=== PATIENT | male | born 1960 | race Caucasian/White ===

== ENCOUNTER → 2016-12-14 | Outpatient (CLI) | payer OTHER | LOC: LAB 12:03 | PROVIDERS: ATTEND Internal Medicine Gastroenterology | DX: K64.0 First degree hemorrhoids (principal) | CPT/HCPCS: 82270 ==

== ENCOUNTER → 2017-03-07 | Outpatient (CLI) | payer OTHER ==
--- NOTE | 2017-03-08 11:11 | MRI ---
HISTORY: Chronic right shoulder pain Study: MRI right shoulder without contrast Comparison: None Technique: Multiplanar multisequence MRI of the right shoulder was obtained utilizing standard depar tmental protocol. Findings: Rotator cuff There is globular increased intrasubstance signal intensity and thickening of the distal supraspinatu s tendon on T1 and T2 weighted images. No full-thickness tear or retraction is seen. Findings suggest moderate to severe tendinosis. Bursa No bursal effusion or thickening is seen. Musculature There is no muscular tear, contusion, or atrophy. Acromioclavicular joint There are moderate degenerative changes of the acromioclavicular joint. A type 2 acromion configurati on is noted. There is no anterior or lateral acromial downsloping. LONG BICIPITAL TENDON The biceps tendon is normally situated within the bicipital groove. No complete or partial biceps ten don tear is present. GLENOHUMERAL JOINT Joint fluid There is no glenohumeral joint effusion. Cartilage and Bone No focal hyaline cartilage defects are noted. No Hill-Sachs, reverse Hill-Sachs, or bony Bankart lesi ons are seen. Labrum There are no SLAP or soft tissue Bankart lesions. No paralabral cysts are seen. Other support structures No capsular or ligamentous abnormality is seen. IMPRESSION: Findings suggest moderate to severe supraspinatus tendinosis without full-thickness tear or retractio n. Moderate AC joint degenerative changes. Reported By:
== END | disposition home or self-care (01) | DRG 556 ==
LOC: RAD 13:48
PROVIDERS: ATTEND Internal Medicine
DX: M25.511 Pain in right shoulder (principal); M19.011 Primary osteoarthritis, right shoulder
CPT/HCPCS: 73221